=== PATIENT | male | born 1950 | race African-American/Black ===

== ENCOUNTER 2021-05-18 06:39 | Inpatient (IN) ==
[2021-05-18] MEDS ORDERED: CeFAZolin Syr 2,000MG/20 ML 2,000 MG/20 ML SYRINGE IVPB ONE (06:58)
[2021-05-18] MEDS ORDERED: Ringers Solution, Lactated 1,000 ML IVC SCH (07:00)
[2021-05-18] MEDS ORDERED: Gabapentin 100 MG CAPSULE PO ONE (07:29)
[2021-05-18] MEDS ORDERED: Acetaminophen IV 1,000 MG/100 ML BAG IVPB ONE (07:29)
[2021-05-18] MEDS ORDERED: Famotidine 20 MG/2 ML VIAL IVP ONE (07:30)
[2021-05-18] MEDS ORDERED: EPHEDrine 50 MG/ML VIAL ONE (07:50)
[2021-05-18] MEDS ORDERED: *HR* Propofol 200 MG/20 ML VIAL IVP ONE (07:54)
[2021-05-18] MEDS ORDERED: *HR* Midazolam HCl 2 MG/2 ML VIAL ONE (07:54)
[2021-05-18] MEDS ORDERED: *HR* FentaNYL (PF) 100 MCG/2 ML VIAL ONE (07:54)
[2021-05-18] MEDS ORDERED: Ondansetron 4 MG/2 ML VIAL ONE (07:55)
[2021-05-18] MEDS ORDERED: *HR* Succinylcholine 200 MG/10 ML VIAL IVP ONE (07:55)
[2021-05-18] MEDS ORDERED: Lidocaine HCL 4 ML Topical Solution (Laryng-O-Jet Kit Sterile Pak) TP ONE (07:55)
[2021-05-18] MEDS ORDERED: Lidocaine -MPF 2% 2 ML VIAL ONE (07:55)
[2021-05-18] MEDS ORDERED: *HR* Rocuronium Bromide 50 MG/5 ML VIAL ONE (07:55)
[2021-05-18] MEDS ORDERED: Gabapentin 300 MG CAPSULE PO ONE (08:15)
[2021-05-18] MEDS ORDERED: *HR* Vasopressin 20 UNIT/ML VIAL ONE (08:20)
[2021-05-18] MEDS ORDERED: *HR* Phenylephrine 10 MG/ML VIAL ONE (09:31)
[2021-05-18] MEDS ORDERED: Albumin Human 5% 12.5 GM/250 ML IV.SOLN ONE (09:38)
[2021-05-18] MEDS ORDERED: Sugammadex Sodium 200 MG/2 ML VIAL IV ONE (10:00)
[2021-05-18] MEDS ORDERED: Naloxone 0.4 MG/ML INJ IVP PRN (11:17)
[2021-05-18] MEDS ORDERED: *HR* HYDROcodone/Acet 5/325 mg TABLET PO PRN (11:17)
[2021-05-18] MEDS ORDERED: Ondansetron 4 MG/2 ML VIAL IVP PRN (11:17)
[2021-05-18] MEDS: *HR* HYDROcodone/Acet 10/325 mg TABLET PO PRN ×3 (12:04→23:21)
[2021-05-18] MEDS: 0.9 % Sodium Chloride 1,000 ML IVC SCH (12:07)
[2021-05-18] MEDS: *HR* Heparin 5,000 UNIT/ML VIAL SQ SCH ×2 (12:08→20:27)
[2021-05-18] MEDS: Artificial Tears SOLN 15 ML BOTTLE BOTH EYES SCH ×3 (12:08→20:27)
[2021-05-18] MEDS: Gabapentin 300 MG CAPSULE PO SCH ×2 (14:58→20:28)
[2021-05-18] MEDS: Ketorolac 15 MG/ML VIAL IVP SCH ×3 (14:58→23:21)
[2021-05-18] MEDS: Budesonide/Formoterol 160/4.5 1 PUFF INH IH SCH (20:19)
[2021-05-18] MEDS: Famotidine 20 MG TABLET PO SCH (20:28)
[2021-05-18] MEDS: Sennosides/Docusate Sodium TABLET PO SCH (20:28)
[2021-05-19 01:42] LABS: Hematocrit 35.7 % (37.5-50.1); Hemoglobin 11.5 g/dL (12.9-16.9); Mean Corpuscular HGB Conc 32.2 g/dL (31.6-35.5); Mean Corpuscular Hemoglobin 30.5 pg (28.0-33.3); Mean Corpuscular Volume 94.7 fL (83.0-100.0); Mean Platelet Volume 9.4 fL (9.4-12.4); Platelet Count 299 K/mcL (140-400); Red Blood Count 3.77 M/mcL (4.19-5.50); Red Cell Distribution Width 13.2 % (11.5-14.5); White Blood Count 11.3 K/mcL (4.3-11.1)
[2021-05-19] MEDS: 0.9 % Sodium Chloride 1,000 ML IVC SCH ×2 (01:48→15:34)
[2021-05-19 01:52] LABS: BUN/Creatinine Ratio 19 (6-26); Blood Urea Nitrogen 23 mg/dL (8-23); Calcium 8.3 mg/dL (8.6-10.3); Carbon Dioxide 24 mEq/L (23-29); Chloride 103 mEq/L (98-107); Glucose 114 mg/dL (70-105); Magnesium 1.8 mg/dL (1.6-2.6); Osmolality,Calculated 283 (280-300); Potassium 4.1 mEq/L (3.5-5.1); Sodium 134 mEq/L (136-145); eGFR For African Americans > 60 (> 60); eGFR For Non-African Americans > 60 (> 60)
[2021-05-19] MEDS: Ketorolac 15 MG/ML VIAL IVP SCH ×4 (04:16→23:47)
[2021-05-19] MEDS: *HR* Heparin 5,000 UNIT/ML VIAL SQ SCH ×3 (04:17→19:51)
[2021-05-19] MEDS: Budesonide/Formoterol 160/4.5 1 PUFF INH IH SCH ×2 (08:04→20:13)
[2021-05-19] MEDS: Famotidine 20 MG TABLET PO SCH ×2 (08:44→19:51)
[2021-05-19] MEDS: Gabapentin 300 MG CAPSULE PO SCH ×3 (08:44→19:51)
[2021-05-19] MEDS: Sennosides/Docusate Sodium TABLET PO SCH ×2 (08:44→19:51)
[2021-05-19] MEDS: Aspirin Enteric Coated 81 MG Tablet PO SCH (08:44)
[2021-05-19] MEDS: Artificial Tears SOLN 15 ML BOTTLE BOTH EYES SCH ×4 (08:46→19:51)
[2021-05-19] MEDS ORDERED: LIDOCAINE IX ONE (10:00)
[2021-05-19] MEDS ORDERED: Talc (sterile) 4 GM, 0.9 % Sodium Chloride 50 ML, Syringe LUER-LOK 1 EACH IX ONE (10:00)
[2021-05-19] MEDS ORDERED: [UNRECOGNIZED DRUG - OTHER] IX ONE (10:00)
[2021-05-19] MEDS ORDERED: *HR* HYDROmorphone 2 MG/ML SYRINGE IVP ONE (10:29)
[2021-05-19] MEDS: *HR* HYDROcodone/Acet 10/325 mg TABLET PO PRN ×2 (19:56→23:48)
[2021-05-20 05:20] LABS: Hematocrit 38.6 % (37.5-50.1); Hemoglobin 12.1 g/dL (12.9-16.9); Mean Corpuscular HGB Conc 31.3 g/dL (31.6-35.5); Mean Corpuscular Hemoglobin 30.3 pg (28.0-33.3); Mean Corpuscular Volume 96.5 fL (83.0-100.0); Mean Platelet Volume 9.5 fL (9.4-12.4); Platelet Count 314 K/mcL (140-400); Red Cell Distribution Width 13.2 % (11.5-14.5); White Blood Count 14.1 K/mcL (4.3-11.1)
[2021-05-20] MEDS ORDERED: Lidocaine -MPF 0.5% 40 ML, Syringe CATH TIP 1 EACH IX ONE (06:00)
[2021-05-20] MEDS: *HR* Heparin 5,000 UNIT/ML VIAL SQ SCH ×3 (06:04→21:56)
[2021-05-20] MEDS: Ketorolac 15 MG/ML VIAL IVP SCH (06:04)
[2021-05-20] MEDS: 0.9 % Sodium Chloride 1,000 ML IVC SCH ×3 (06:05→23:37)
[2021-05-20 06:55] LABS: BUN/Creatinine Ratio 22 (6-26); Blood Urea Nitrogen 30 mg/dL (8-23); Calcium 8.2 mg/dL (8.6-10.3); Carbon Dioxide 26 mEq/L (23-29); Chloride 103 mEq/L (98-107); Glucose 106 mg/dL (70-105); Magnesium 1.9 mg/dL (1.6-2.6); Osmolality,Calculated 279 (280-300); Potassium 5.7 mEq/L (3.5-5.1); Sodium 131 mEq/L (136-145); eGFR For African Americans > 60 (> 60); eGFR For Non-African Americans 52 (> 60)
[2021-05-20] MEDS: Budesonide/Formoterol 160/4.5 1 PUFF INH IH SCH ×2 (07:56→20:12)
[2021-05-20] MEDS ORDERED: Talc (sterile) 4 GM, 0.9 % Sodium Chloride 50 ML, Syringe LUER-LOK 1 EACH IX ONE (08:00)
[2021-05-20] MEDS: Gabapentin 300 MG CAPSULE PO SCH ×3 (09:20→21:56)
[2021-05-20] MEDS: Artificial Tears SOLN 15 ML BOTTLE BOTH EYES SCH ×4 (09:20→22:01)
[2021-05-20] MEDS: Famotidine 20 MG TABLET PO SCH ×2 (09:20→21:56)
[2021-05-20] MEDS: Sennosides/Docusate Sodium TABLET PO SCH ×2 (09:20→21:56)
[2021-05-20] MEDS: Aspirin Enteric Coated 81 MG Tablet PO SCH (09:20)
[2021-05-20] MEDS: MethylPREDNISolone 40 MG/ML VIAL IVP SCH ×3 (11:23→23:36)
[2021-05-20] MEDS: Ipratropium/Albuterol Neb 3 ML IH SCH ×3 (11:41→20:12)
[2021-05-21] MEDS: Ipratropium/Albuterol Neb 3 ML IH SCH ×7 (00:02→23:07)
[2021-05-21] MEDS: *HR* Heparin 5,000 UNIT/ML VIAL SQ SCH ×3 (05:39→23:10)
[2021-05-21 06:12] LABS: Hematocrit 39.6 % (37.5-50.1); Hemoglobin 12.4 g/dL (12.9-16.9); Mean Corpuscular HGB Conc 31.3 g/dL (31.6-35.5); Mean Corpuscular Hemoglobin 29.7 pg (28.0-33.3); Mean Corpuscular Volume 94.7 fL (83.0-100.0); Mean Platelet Volume 9.4 fL (9.4-12.4); Platelet Count 343 K/mcL (140-400); Red Blood Count 4.18 M/mcL (4.19-5.50); Red Cell Distribution Width 13.2 % (11.5-14.5); White Blood Count 13.3 K/mcL (4.3-11.1)
[2021-05-21 06:34] LABS: Magnesium 2.2 mg/dL (1.6-2.6); Potassium 5.8 mEq/L (3.5-5.1)
[2021-05-21] MEDS: Budesonide/Formoterol 160/4.5 1 PUFF INH IH SCH ×2 (07:38→19:51)
[2021-05-21] MEDS ORDERED: 0.9 % Sodium Chloride 1,000 ML IVC SCH (09:11)
[2021-05-21] MEDS: Aspirin Enteric Coated 81 MG Tablet PO SCH (09:56)
[2021-05-21] MEDS: Sennosides/Docusate Sodium TABLET PO SCH ×2 (09:57→19:49)
[2021-05-21] MEDS: Albumin Human 5% 12.5 GM/250 ML IV.SOLN IVC SCH ×2 (09:57→14:58)
[2021-05-21 10:09] LABS: Calcium 8.5 mg/dL (8.6-10.3)
[2021-05-21] MEDS: SODIUM ZIRCONIUM CYCLOSILICATE 5 GM POWD.PACK PO SCH (11:18)
[2021-05-21] MEDS: 0.9 % Sodium Chloride 1,000 ML IVC SCH (15:03)
[2021-05-21] MEDS: MethylPREDNISolone 40 MG/ML VIAL IVP SCH ×2 (15:10→23:10)
[2021-05-21 15:37] LABS: Bacteria,Urine Few per hpf (None-Few); Bilirubin,Urine Negative (Negative); Blood,Urine Moderate (Negative); Clarity,Urine Clear (Clear); Color,Urine Colorless (Yellow); Glucose,Urine (UA) Normal (Normal); Ketones,Urine Negative (Negative); Leukocyte Esterase,Urine Negative (Negative); Mucus,Urine Few per lpf (None-Few); Nitrite,Urine Negative (Negative); Protein,Urine Negative (Neg-Trace); RBC,Urine 0-3 per hpf (0-3); Specific Gravity,Urine 1.007 (1.010-1.025); Urobilinogen,Urine Normal (Normal); WBC,Urine 0-3 per hpf (0-3)
[2021-05-21 15:46] LABS: Protein/Creatinine Ratio,Urine 0.18 mg/mg (0.00-0.20); Sodium, Urine 23.7 mEq/L
[2021-05-21 17:24] LABS: Calcium 8.4 mg/dL (8.6-10.3); Potassium 5.3 mEq/L (3.5-5.1)
[2021-05-22 01:02] LABS: Hematocrit 36.6 % (37.5-50.1); Mean Corpuscular HGB Conc 32.8 g/dL (31.6-35.5); Mean Corpuscular Hemoglobin 30.4 pg (28.0-33.3); Mean Corpuscular Volume 92.7 fL (83.0-100.0); Mean Platelet Volume 9.5 fL (9.4-12.4); Platelet Count 326 K/mcL (140-400); Red Blood Count 3.95 M/mcL (4.19-5.50); Red Cell Distribution Width 13.3 % (11.5-14.5); White Blood Count 14.7 K/mcL (4.3-11.1)
[2021-05-22] MEDS: 0.9 % Sodium Chloride 1,000 ML IVC SCH ×4 (01:12→08:04)
[2021-05-22 01:20] LABS: Uric Acid 6.7 mg/dL (2.3-7.6)
[2021-05-22 01:21] LABS: Calcium 8.4 mg/dL (8.6-10.3); Potassium 5.4 mEq/L (3.5-5.1)
[2021-05-22] MEDS: Ipratropium/Albuterol Neb 3 ML IH SCH ×5 (03:50→21:28)
[2021-05-22] MEDS: *HR* Heparin 5,000 UNIT/ML VIAL SQ SCH ×3 (05:56→21:51)
[2021-05-22] MEDS: Budesonide/Formoterol 160/4.5 1 PUFF INH IH SCH ×2 (07:50→21:27)
[2021-05-22] MEDS: Famotidine 20 MG TABLET PO SCH (08:01)
[2021-05-22] MEDS: Sennosides/Docusate Sodium TABLET PO SCH ×2 (08:01→20:17)
[2021-05-22] MEDS: Aspirin Enteric Coated 81 MG Tablet PO SCH (08:01)
[2021-05-22] MEDS: MethylPREDNISolone 40 MG/ML VIAL IVP SCH (08:02)
[2021-05-22] MEDS: *HR* HYDROcodone/Acet 10/325 mg TABLET PO PRN ×3 (08:02→20:17)
[2021-05-22] MEDS: SODIUM ZIRCONIUM CYCLOSILICATE 5 GM POWD.PACK PO SCH (08:02)
[2021-05-22] MEDS ORDERED: ALPRAZolam 0.25 MG TABLET PO ONE (09:15)
[2021-05-22] MEDS: *HR* HYDROmorphone 2 MG/ML SYRINGE IVP PRN ×3 (09:23→21:51)
[2021-05-22] MEDS: ALPRAZolam 0.25 MG TABLET PO PRN (12:29)
[2021-05-22] MEDS: Morphine Sulfate ER (12 HR) 15 MG TABLET.ER PO SCH (14:32)
[2021-05-22] MEDS: Gabapentin 300 MG CAPSULE PO SCH ×2 (14:32→20:17)
[2021-05-22] MEDS: Nicotine 21 MG PATCH.TD24 TD SCH (14:35)
[2021-05-23 02:37] LABS: Mean Corpuscular HGB Conc 31.6 g/dL (31.6-35.5); Mean Platelet Volume 9.5 fL (9.4-12.4); Platelet Count 366 K/mcL (140-400); Red Cell Distribution Width 13.6 % (11.5-14.5); White Blood Count 13.9 K/mcL (4.3-11.1)
[2021-05-23 02:57] LABS: BUN/Creatinine Ratio 41 (6-26); Blood Urea Nitrogen 42 mg/dL (8-23); Calcium 8.3 mg/dL (8.6-10.3); Carbon Dioxide 25 mEq/L (23-29); Chloride 106 mEq/L (98-107); Glucose 116 mg/dL (70-105); Osmolality,Calculated 291 (280-300); Potassium 5.2 mEq/L (3.5-5.1); Sodium 135 mEq/L (136-145); eGFR For African Americans > 60 (> 60); eGFR For Non-African Americans > 60 (> 60)
[2021-05-23] MEDS: Ipratropium/Albuterol Neb 3 ML IH SCH ×4 (03:58→22:41)
[2021-05-23] MEDS: Morphine Sulfate ER (12 HR) 15 MG TABLET.ER PO SCH ×2 (05:02→17:10)
[2021-05-23] MEDS: *HR* Heparin 5,000 UNIT/ML VIAL SQ SCH ×3 (05:02→21:10)
[2021-05-23] MEDS: 0.9 % Sodium Chloride 1,000 ML IVC SCH (05:02)
[2021-05-23] MEDS: *HR* HYDROcodone/Acet 10/325 mg TABLET PO PRN ×3 (07:38→21:11)
[2021-05-23] MEDS: Gabapentin 300 MG CAPSULE PO SCH ×3 (07:38→21:11)
[2021-05-23] MEDS: Aspirin Enteric Coated 81 MG Tablet PO SCH (07:38)
[2021-05-23] MEDS: Sennosides/Docusate Sodium TABLET PO SCH ×2 (07:38→21:11)
[2021-05-23] MEDS: Famotidine 20 MG TABLET PO SCH (07:39)
[2021-05-23] MEDS: SODIUM ZIRCONIUM CYCLOSILICATE 5 GM POWD.PACK PO SCH (07:39)
[2021-05-23] MEDS: Nicotine 21 MG PATCH.TD24 TD SCH (07:39)
[2021-05-23] MEDS: Budesonide/Formoterol 160/4.5 1 PUFF INH IH SCH ×2 (09:51→22:41)
[2021-05-23] MEDS ORDERED: Dextromethorphan Polistrx(12h) 30 MG/5 ML UDC PO ONE (13:37)
[2021-05-23] MEDS: ALPRAZolam 0.25 MG TABLET PO PRN ×2 (14:51→21:11)
[2021-05-23] MEDS: *HR* HYDROmorphone 2 MG/ML SYRINGE IVP PRN (14:52)
[2021-05-24] MEDS: 0.9 % Sodium Chloride 1,000 ML IVC SCH ×2 (00:28→19:32)
[2021-05-24 02:28] LABS: Hematocrit 36.7 % (37.5-50.1); Hemoglobin 11.8 g/dL (12.9-16.9); Mean Corpuscular HGB Conc 32.2 g/dL (31.6-35.5); Mean Corpuscular Hemoglobin 29.9 pg (28.0-33.3); Mean Corpuscular Volume 92.9 fL (83.0-100.0); Mean Platelet Volume 9.3 fL (9.4-12.4); Platelet Count 382 K/mcL (140-400); Red Blood Count 3.95 M/mcL (4.19-5.50); Red Cell Distribution Width 13.3 % (11.5-14.5); White Blood Count 10.9 K/mcL (4.3-11.1)
[2021-05-24 02:41] LABS: BUN/Creatinine Ratio 45 (6-26); Blood Urea Nitrogen 45 mg/dL (8-23); Calcium 7.8 mg/dL (8.6-10.3); Carbon Dioxide 23 mEq/L (23-29); Chloride 104 mEq/L (98-107); Glucose 109 mg/dL (70-105); Osmolality,Calculated 288 (280-300); Potassium 4.9 mEq/L (3.5-5.1); Sodium 133 mEq/L (136-145); eGFR For African Americans > 60 (> 60); eGFR For Non-African Americans > 60 (> 60)
[2021-05-24] MEDS: Ipratropium/Albuterol Neb 3 ML IH SCH ×4 (04:02→22:23)
[2021-05-24] MEDS: Morphine Sulfate ER (12 HR) 15 MG TABLET.ER PO SCH ×2 (05:25→19:30)
[2021-05-24] MEDS: *HR* Heparin 5,000 UNIT/ML VIAL SQ SCH ×3 (05:25→19:30)
[2021-05-24] MEDS: ALPRAZolam 0.25 MG TABLET PO PRN ×2 (07:54→23:34)
[2021-05-24] MEDS: *HR* HYDROcodone/Acet 10/325 mg TABLET PO PRN ×3 (07:54→23:33)
[2021-05-24] MEDS: Famotidine 20 MG TABLET PO SCH (07:54)
[2021-05-24] MEDS: Aspirin Enteric Coated 81 MG Tablet PO SCH (07:54)
[2021-05-24] MEDS: Nicotine 21 MG PATCH.TD24 TD SCH (07:55)
[2021-05-24] MEDS: Gabapentin 300 MG CAPSULE PO SCH ×3 (07:55→19:30)
[2021-05-24] MEDS: Sennosides/Docusate Sodium TABLET PO SCH ×2 (07:55→19:30)
[2021-05-24] MEDS: SODIUM ZIRCONIUM CYCLOSILICATE 5 GM POWD.PACK PO SCH (07:55)
[2021-05-24] MEDS: Budesonide/Formoterol 160/4.5 1 PUFF INH IH SCH ×2 (10:55→22:23)
[2021-05-25] MEDS ORDERED: Ipratropium/Albuterol Neb 3 ML IH PRN (02:01)
[2021-05-25 02:17] LABS: Hematocrit 37.8 % (37.5-50.1); Mean Corpuscular HGB Conc 31.7 g/dL (31.6-35.5); Mean Corpuscular Hemoglobin 29.6 pg (28.0-33.3); Mean Corpuscular Volume 93.3 fL (83.0-100.0); Mean Platelet Volume 9.1 fL (9.4-12.4); Platelet Count 378 K/mcL (140-400); Red Blood Count 4.05 M/mcL (4.19-5.50); Red Cell Distribution Width 13.3 % (11.5-14.5); White Blood Count 13.2 K/mcL (4.3-11.1)
[2021-05-25 02:30] LABS: BUN/Creatinine Ratio 42 (6-26); Blood Urea Nitrogen 48 mg/dL (8-23); Calcium 7.9 mg/dL (8.6-10.3); Carbon Dioxide 24 mEq/L (23-29); Chloride 103 mEq/L (98-107); Glucose 119 mg/dL (70-105); Osmolality,Calculated 288 (280-300); Potassium 4.8 mEq/L (3.5-5.1); Sodium 132 mEq/L (136-145); eGFR For African Americans > 60 (> 60); eGFR For Non-African Americans > 60 (> 60)
[2021-05-25] MEDS: *HR* Heparin 5,000 UNIT/ML VIAL SQ SCH ×3 (04:41→20:38)
[2021-05-25] MEDS: *HR* HYDROcodone/Acet 10/325 mg TABLET PO PRN ×2 (04:41→11:41)
[2021-05-25] MEDS ORDERED: Ondansetron 4 MG/2 ML VIAL ONE (07:10)
[2021-05-25] MEDS ORDERED: *HR* Rocuronium Bromide 50 MG/5 ML VIAL ONE (07:10)
[2021-05-25] MEDS ORDERED: *HR* Midazolam HCl 2 MG/2 ML VIAL ONE (07:10)
[2021-05-25] MEDS ORDERED: *HR* Succinylcholine 200 MG/10 ML VIAL IVP ONE (07:10)
[2021-05-25] MEDS ORDERED: *HR* Propofol 200 MG/20 ML VIAL IVP ONE (07:10)
[2021-05-25] MEDS ORDERED: *HR* FentaNYL (PF) 100 MCG/2 ML VIAL ONE (07:10)
[2021-05-25] MEDS ORDERED: Lidocaine HCL 4 ML Topical Solution (Laryng-O-Jet Kit Sterile Pak) TP ONE (07:10)
[2021-05-25] MEDS ORDERED: Lidocaine -MPF 2% 2 ML VIAL ONE (07:10)
[2021-05-25] MEDS ORDERED: CeFAZolin Syr 2,000MG/20 ML 2,000 MG/20 ML SYRINGE IVPB ONE (07:22)
[2021-05-25] MEDS ORDERED: Ondansetron 4 MG/2 ML VIAL IVP PRN (08:03)
[2021-05-25] MEDS ORDERED: *HR* Vasopressin 20 UNIT/ML VIAL ONE (08:09)
[2021-05-25] MEDS: Budesonide/Formoterol 160/4.5 1 PUFF INH IH SCH ×2 (08:12→20:35)
[2021-05-25] MEDS ORDERED: Albumin Human 5% 25.0 GM/500 ML IV.SOLN ONE (08:13)
[2021-05-25] MEDS ORDERED: Sugammadex Sodium 200 MG/2 ML VIAL IV ONE (09:09)
[2021-05-25] MEDS: *HR* HYDROmorphone PF 0.5 MG/0.5 ML SYRINGE IVP PRN ×2 (10:05→10:23)
[2021-05-25] MEDS ORDERED: *HR* HYDROmorphone 2 MG/ML SYRINGE IVP PRN (11:23)
[2021-05-25] MEDS ORDERED: Naloxone 0.4 MG/ML INJ IVP PRN (11:23)
[2021-05-25] MEDS: 0.9 % Sodium Chloride 1,000 ML IVC SCH ×2 (11:42→17:18)
[2021-05-25] MEDS: ceFAZolin 1,000 MG in Water for inj. (sterile) 10 ML IVP SCH ×2 (15:40→23:41)
[2021-05-25] MEDS: Gabapentin 300 MG CAPSULE PO SCH ×2 (15:42→20:38)
[2021-05-25] MEDS: Albumin Human 5% 12.5 GM/250 ML IV.SOLN IVC SCH ×2 (17:16→20:38)
[2021-05-25] MEDS: Morphine Sulfate ER (12 HR) 15 MG TABLET.ER PO SCH (17:16)
[2021-05-25] MEDS: Sennosides/Docusate Sodium TABLET PO SCH (20:40)
[2021-05-26] MEDS: 0.9 % Sodium Chloride 1,000 ML IVC SCH ×3 (01:42→23:53)
[2021-05-26] MEDS: Ondansetron 4 MG/2 ML VIAL IVP PRN ×2 (01:48→17:19)
[2021-05-26] MEDS: ALPRAZolam 0.25 MG TABLET PO PRN ×2 (03:23→21:31)
[2021-05-26] MEDS: *HR* HYDROcodone/Acet 10/325 mg TABLET PO PRN (03:24)
[2021-05-26] MEDS ORDERED: *HR* Promethazine 25 MG/ML VIAL IM PRN (04:50)
[2021-05-26] MEDS: *HR* Heparin 5,000 UNIT/ML VIAL SQ SCH ×3 (05:06→21:34)
[2021-05-26] MEDS: Budesonide/Formoterol 160/4.5 1 PUFF INH IH SCH ×2 (08:03→23:39)
[2021-05-26] MEDS: Nicotine 21 MG PATCH.TD24 TD SCH (08:19)
[2021-05-26] MEDS: SODIUM ZIRCONIUM CYCLOSILICATE 5 GM POWD.PACK PO SCH (08:20)
[2021-05-26] MEDS: Sennosides/Docusate Sodium TABLET PO SCH ×2 (08:22→21:31)
[2021-05-26] MEDS ORDERED: Milk and Molasses Enema 200 ML RC ONE (08:24)
[2021-05-26] MEDS: Gabapentin 300 MG CAPSULE PO SCH ×3 (08:28→20:45)
[2021-05-26] MEDS: ceFAZolin 1,000 MG in Water for inj. (sterile) 10 ML IVP SCH (08:29)
[2021-05-26] MEDS ORDERED: Famotidine 20 MG TABLET PO SCH (09:00)
[2021-05-26 11:52] LABS: Mean Corpuscular HGB Conc 30.6 g/dL (31.6-35.5); Mean Corpuscular Volume 97.8 fL (83.0-100.0); Mean Platelet Volume 9.4 fL (9.4-12.4); Platelet Count 401 K/mcL (140-400); Red Blood Count 3.17 M/mcL (4.19-5.50); Red Cell Distribution Width 13.5 % (11.5-14.5); White Blood Count 12.9 K/mcL (4.3-11.1)
[2021-05-26 12:24] LABS: Hemoglobin 9.5 g/dL (12.9-16.9)
[2021-05-26 12:52] LABS: BUN/Creatinine Ratio 43 (6-26); Blood Urea Nitrogen 43 mg/dL (8-23); Calcium 7.6 mg/dL (8.6-10.3); Carbon Dioxide 24 mEq/L (23-29); Chloride 108 mEq/L (98-107); Glucose 139 mg/dL (70-105); Osmolality,Calculated 297 (280-300); Potassium 4.8 mEq/L (3.5-5.1); Sodium 137 mEq/L (136-145); eGFR For African Americans > 60 (> 60); eGFR For Non-African Americans > 60 (> 60)
[2021-05-26] MEDS: Morphine Sulfate ER (12 HR) 15 MG TABLET.ER PO SCH ×2 (13:23→17:40)
[2021-05-26] MEDS: Aspirin Enteric Coated 81 MG Tablet PO SCH (13:24)
[2021-05-26] MEDS: Metoclopramide 10 MG/2 ML VIAL IVP SCH ×3 (13:27→23:53)
[2021-05-26] MEDS: Pantoprazole 40 MG VIAL IVP SCH (17:18)
[2021-05-26] MEDS: *HR* OxyCODONE/APAP 5/325 TABLET PO PRN ×2 (17:28→23:51)
[2021-05-27 01:39] LABS: Hematocrit 27.7 % (37.5-50.1); Hemoglobin 8.9 g/dL (12.9-16.9); Mean Corpuscular HGB Conc 32.1 g/dL (31.6-35.5); Mean Corpuscular Hemoglobin 31.3 pg (28.0-33.3); Mean Corpuscular Volume 97.5 fL (83.0-100.0); Mean Platelet Volume 9.3 fL (9.4-12.4); Platelet Count 370 K/mcL (140-400); Red Blood Count 2.84 M/mcL (4.19-5.50); Red Cell Distribution Width 13.5 % (11.5-14.5); White Blood Count 12.3 K/mcL (4.3-11.1)
[2021-05-27 01:59] LABS: BUN/Creatinine Ratio 44 (6-26); Blood Urea Nitrogen 36 mg/dL (8-23); Calcium 7.3 mg/dL (8.6-10.3); Carbon Dioxide 26 mEq/L (23-29); Chloride 108 mEq/L (98-107); Glucose 107 mg/dL (70-105); Osmolality,Calculated 291 (280-300); Potassium 4.8 mEq/L (3.5-5.1); Sodium 136 mEq/L (136-145); eGFR For African Americans > 60 (> 60); eGFR For Non-African Americans > 60 (> 60)
[2021-05-27] MEDS: Pantoprazole 40 MG VIAL IVP SCH ×2 (05:13→16:51)
[2021-05-27] MEDS: *HR* Heparin 5,000 UNIT/ML VIAL SQ SCH ×3 (05:13→20:03)
[2021-05-27] MEDS: Metoclopramide 10 MG/2 ML VIAL IVP SCH ×4 (05:13→23:09)
[2021-05-27] MEDS: Morphine Sulfate ER (12 HR) 15 MG TABLET.ER PO SCH (05:14)
[2021-05-27] MEDS: Budesonide/Formoterol 160/4.5 1 PUFF INH IH SCH ×2 (08:56→21:45)
[2021-05-27] MEDS: Sennosides/Docusate Sodium TABLET PO SCH ×2 (09:30→20:03)
[2021-05-27] MEDS: Aspirin Enteric Coated 81 MG Tablet PO SCH (09:30)
[2021-05-27] MEDS: *HR* OxyCODONE/APAP 5/325 TABLET PO PRN ×2 (09:31→20:03)
[2021-05-27] MEDS: SODIUM ZIRCONIUM CYCLOSILICATE 5 GM POWD.PACK PO SCH (09:31)
[2021-05-27] MEDS: Nicotine 21 MG PATCH.TD24 TD SCH (09:32)
[2021-05-27] MEDS: 0.9 % Sodium Chloride 1,000 ML IVC SCH ×2 (09:34→11:37)
[2021-05-27] MEDS: Acetylcysteine 10% 2 ML INHSOL IH SCH ×4 (12:32→21:44)
[2021-05-27] MEDS: Ipratropium/Albuterol Neb 3 ML IH PRN (16:04)
[2021-05-27] MEDS ORDERED: 0.9 % Sodium Chloride 250 ML ONE (20:07)
[2021-05-27] MEDS: *HR* OxyCODONE/APAP 10/325 TABLET PO PRN (23:10)
[2021-05-28 01:19] LABS: Hematocrit 29.5 % (37.5-50.1); Hemoglobin 9.4 g/dL (12.9-16.9); Mean Corpuscular HGB Conc 31.9 g/dL (31.6-35.5); Mean Corpuscular Hemoglobin 30.8 pg (28.0-33.3); Mean Corpuscular Volume 96.7 fL (83.0-100.0); Mean Platelet Volume 9.2 fL (9.4-12.4); Platelet Count 420 K/mcL (140-400); Red Blood Count 3.05 M/mcL (4.19-5.50); Red Cell Distribution Width 13.5 % (11.5-14.5); White Blood Count 14.9 K/mcL (4.3-11.1)
[2021-05-28 01:33] LABS: BUN/Creatinine Ratio 35 (6-26); Blood Urea Nitrogen 28 mg/dL (8-23); Calcium 7.5 mg/dL (8.6-10.3); Carbon Dioxide 27 mEq/L (23-29); Chloride 108 mEq/L (98-107); Glucose 107 mg/dL (70-105); Osmolality,Calculated 290 (280-300); Potassium 4.4 mEq/L (3.5-5.1); Sodium 137 mEq/L (136-145); eGFR For African Americans > 60 (> 60); eGFR For Non-African Americans > 60 (> 60)
[2021-05-28] MEDS: Acetylcysteine 10% 2 ML INHSOL IH SCH ×4 (03:18→22:13)
[2021-05-28] MEDS: Ipratropium/Albuterol Neb 3 ML IH PRN ×4 (03:18→22:13)
[2021-05-28] MEDS: Pantoprazole 40 MG VIAL IVP SCH (05:57)
[2021-05-28] MEDS: Metoclopramide 10 MG/2 ML VIAL IVP SCH ×2 (05:57→11:27)
[2021-05-28] MEDS: *HR* OxyCODONE/APAP 10/325 TABLET PO PRN (05:58)
[2021-05-28] MEDS: *HR* Heparin 5,000 UNIT/ML VIAL SQ SCH ×3 (05:58→20:45)
[2021-05-28] MEDS: Sennosides/Docusate Sodium TABLET PO SCH ×2 (08:23→20:39)
[2021-05-28] MEDS: Aspirin Enteric Coated 81 MG Tablet PO SCH (08:24)
[2021-05-28] MEDS: SODIUM ZIRCONIUM CYCLOSILICATE 5 GM POWD.PACK PO SCH (08:24)
[2021-05-28] MEDS: Nicotine 21 MG PATCH.TD24 TD SCH (08:24)
[2021-05-28] MEDS ORDERED: Milk and Molasses Enema 200 ML RC ONE (09:50)
[2021-05-28] MEDS: Budesonide/Formoterol 160/4.5 1 PUFF INH IH SCH ×2 (10:06→22:13)
[2021-05-28] MEDS: Sulfamethoxazole/Trimeth DS 1 EACH TABLET PO SCH ×2 (11:27→20:38)
[2021-05-28] MEDS: Famotidine 20 MG TABLET PO SCH (20:38)
[2021-05-29 03:26] LABS: Hematocrit 27.8 % (37.5-50.1); Mean Corpuscular HGB Conc 32.4 g/dL (31.6-35.5); Mean Corpuscular Hemoglobin 30.6 pg (28.0-33.3); Mean Corpuscular Volume 94.6 fL (83.0-100.0); Mean Platelet Volume 9.3 fL (9.4-12.4); Platelet Count 448 K/mcL (140-400); Red Blood Count 2.94 M/mcL (4.19-5.50); Red Cell Distribution Width 13.7 % (11.5-14.5); White Blood Count 19.4 K/mcL (4.3-11.1)
[2021-05-29 03:44] LABS: BUN/Creatinine Ratio 25 (6-26); Blood Urea Nitrogen 20 mg/dL (8-23); Calcium 7.8 mg/dL (8.6-10.3); Carbon Dioxide 26 mEq/L (23-29); Chloride 107 mEq/L (98-107); Glucose 115 mg/dL (70-105); Osmolality,Calculated 290 (280-300); Potassium 3.9 mEq/L (3.5-5.1); Sodium 138 mEq/L (136-145); eGFR For African Americans > 60 (> 60); eGFR For Non-African Americans > 60 (> 60)
[2021-05-29] MEDS: Acetylcysteine 10% 2 ML INHSOL IH SCH ×4 (03:54→21:42)
[2021-05-29] MEDS: *HR* Heparin 5,000 UNIT/ML VIAL SQ SCH ×4 (05:43→21:52)
[2021-05-29] MEDS: Aspirin Enteric Coated 81 MG Tablet PO SCH (08:21)
[2021-05-29] MEDS: Sulfamethoxazole/Trimeth DS 1 EACH TABLET PO SCH ×2 (08:21→21:52)
[2021-05-29] MEDS: Sennosides/Docusate Sodium TABLET PO SCH ×2 (08:21→21:52)
[2021-05-29] MEDS: Famotidine 20 MG TABLET PO SCH ×2 (08:21→21:52)
[2021-05-29] MEDS: Nicotine 21 MG PATCH.TD24 TD SCH (08:21)
[2021-05-29] MEDS: SODIUM ZIRCONIUM CYCLOSILICATE 5 GM POWD.PACK PO SCH (08:22)
[2021-05-29] MEDS: Ipratropium/Albuterol Neb 3 ML IH PRN ×3 (11:45→21:42)
[2021-05-29] MEDS: Budesonide/Formoterol 160/4.5 1 PUFF INH IH SCH ×2 (11:45→21:42)
[2021-05-30 02:18] LABS: Hematocrit 23.2 % (37.5-50.1); Hemoglobin 7.6 g/dL (12.9-16.9); Mean Corpuscular HGB Conc 32.8 g/dL (31.6-35.5); Mean Corpuscular Hemoglobin 30.6 pg (28.0-33.3); Mean Corpuscular Volume 93.5 fL (83.0-100.0); Mean Platelet Volume 9.2 fL (9.4-12.4); Platelet Count 415 K/mcL (140-400); Red Blood Count 2.48 M/mcL (4.19-5.50); Red Cell Distribution Width 14.1 % (11.5-14.5); White Blood Count 18.7 K/mcL (4.3-11.1)
[2021-05-30 02:31] LABS: BUN/Creatinine Ratio 19 (6-26); Blood Urea Nitrogen 17 mg/dL (8-23); Calcium 7.8 mg/dL (8.6-10.3); Carbon Dioxide 25 mEq/L (23-29); Chloride 107 mEq/L (98-107); Glucose 102 mg/dL (70-105); Osmolality,Calculated 288 (280-300); Potassium 3.9 mEq/L (3.5-5.1); Sodium 138 mEq/L (136-145); eGFR For African Americans > 60 (> 60); eGFR For Non-African Americans > 60 (> 60)
[2021-05-30] MEDS: Ipratropium/Albuterol Neb 3 ML IH PRN ×2 (04:01→10:43)
[2021-05-30] MEDS: Acetylcysteine 10% 2 ML INHSOL IH SCH ×2 (04:01→10:44)
[2021-05-30] MEDS: *HR* Heparin 5,000 UNIT/ML VIAL SQ SCH ×3 (05:53→21:11)
[2021-05-30] MEDS: Budesonide/Formoterol 160/4.5 1 PUFF INH IH SCH ×2 (07:51→20:00)
[2021-05-30] MEDS: Sulfamethoxazole/Trimeth DS 1 EACH TABLET PO SCH ×2 (08:35→21:10)
[2021-05-30] MEDS: Aspirin Enteric Coated 81 MG Tablet PO SCH (08:35)
[2021-05-30] MEDS: Nicotine 21 MG PATCH.TD24 TD SCH (08:36)
[2021-05-30] MEDS: Famotidine 20 MG TABLET PO SCH ×2 (08:36→21:10)
[2021-05-30] MEDS: Sennosides/Docusate Sodium TABLET PO SCH ×2 (08:36→21:09)
[2021-05-30] MEDS: SODIUM ZIRCONIUM CYCLOSILICATE 5 GM POWD.PACK PO SCH (08:42)
[2021-05-30 12:14] LABS: Bilirubin,Urine Negative (Negative); Blood,Urine Trace (Negative); Clarity,Urine Clear (Clear); Color,Urine Yellow (Yellow); Glucose,Urine (UA) Normal (Normal); Ketones,Urine Negative (Negative); Leukocyte Esterase,Urine Negative (Negative); Mucus,Urine Few per lpf (None-Few); Nitrite,Urine Negative (Negative); Protein,Urine 50 mg/dL (Neg-Trace); Specific Gravity,Urine 1.021 (1.010-1.025); WBC,Urine 0-3 per hpf (0-3)
[2021-05-30] MEDS: ALPRAZolam 0.25 MG TABLET PO SCH (21:10)
[2021-05-31] MEDS: *HR* Heparin 5,000 UNIT/ML VIAL SQ SCH (05:38)
[2021-05-31 07:15] VITALS: TEMP 98.2
[2021-05-31] MEDS: Sulfamethoxazole/Trimeth DS 1 EACH TABLET PO SCH (07:28)
[2021-05-31] MEDS: ALPRAZolam 0.25 MG TABLET PO SCH (07:28)
[2021-05-31] MEDS: Sennosides/Docusate Sodium TABLET PO SCH (07:28)
[2021-05-31] MEDS: Aspirin Enteric Coated 81 MG Tablet PO SCH (07:28)
[2021-05-31] MEDS: Nicotine 21 MG PATCH.TD24 TD SCH (07:29)
[2021-05-31] MEDS: Famotidine 20 MG TABLET PO SCH (07:29)
[2021-05-31] MEDS: SODIUM ZIRCONIUM CYCLOSILICATE 5 GM POWD.PACK PO SCH (07:29)
[2021-05-31 07:50] LABS: Hematocrit 25.3 % (37.5-50.1); Hemoglobin 8.1 g/dL (12.9-16.9); Mean Corpuscular Hemoglobin 30.5 pg (28.0-33.3); Mean Corpuscular Volume 95.1 fL (83.0-100.0); Platelet Count 477 K/mcL (140-400); Red Blood Count 2.66 M/mcL (4.19-5.50); Red Cell Distribution Width 13.9 % (11.5-14.5); White Blood Count 19.9 K/mcL (4.3-11.1)
[2021-05-31 08:04] LABS: BUN/Creatinine Ratio 17 (6-26); Blood Urea Nitrogen 17 mg/dL (8-23); Calcium 8.2 mg/dL (8.6-10.3); Carbon Dioxide 23 mEq/L (23-29); Chloride 104 mEq/L (98-107); Glucose 87 mg/dL (70-105); Magnesium 1.9 mg/dL (1.6-2.6); Osmolality,Calculated 277 (280-300); Potassium 4.4 mEq/L (3.5-5.1); Sodium 133 mEq/L (136-145); eGFR For African Americans > 60 (> 60); eGFR For Non-African Americans > 60 (> 60)
[2021-05-31] MEDS: Budesonide/Formoterol 160/4.5 1 PUFF INH IH SCH (08:05)
[2021-05-31 11:33] VITALS: BP 123/78; PULSE 97; O2SAT 93
[2021-05-31] MEDS ORDERED: levoFLOXacin 750 MG/150 ML 750 MG/150 ML BAG IVPB SCH (12:30)
== END 2021-05-31 14:13 | disposition home health service (06) | DRG 163 ==
LOC: SAMDAY 06:39 → 2NNU 11:11
PROVIDERS: ADMIT Thoracic Surgery (Cardiothoracic Vascular Surgery); ATTEND Thoracic Surgery (Cardiothoracic Vascular Surgery)